=== PATIENT | female | born 1955 | race Caucasian/White ===

== ENCOUNTER → 2018-04-22 16:51 | Outpatient (CLI) | payer OTHER, SELFPAY ==
--- NOTE | 2018-04-22 | ASPS_PTH ---
PATIENT: CATHLEEN TRISTAN LOC: [facility] U#:[id number] AGE/SX: 69/F ROOM: RE04/22/[address]: Dr. Ifeanyi Hoyos MD : 1955 BED: DIS: SPEC #: [id number] RECD: 04/22/18 16:15 STATUS: LARRY MARGRET #: [id number] WILLIAM: 04/22/18 00:[address]: Ifeanyi Hoyos DEPT: CYTOLOGY RECD BY: Srinivasa Raygoza Tissues: Axillary lymph node, NOS Procedures: Pap Stain (control) Special Stain Group II Surgery Specimen Level IV Cytology Other HEADER OPERATION: Ultrasound-guided fine needle aspiration of right axillary lymph node PRE-OP DIAGNOSIS: Right axillary mass, history of right breast cancer TISSUE SUBMITTED: FNA right axillary mass/lymph node DIAGNOSIS CYTOLOGY Right axillary mass/lymph node, ultrasound-guided FNA (smears): Negative for malignant cells. See cytology study and comment. SJ:kiran 11/20/18 COMMENT Correlation with clinical findings and appropriate follow up are necessary. Rebiopsy is suggested if clinically indicated. CYTOLOGY STUDY Slides are reviewed. The specimen is paucicellular and predominantly consists of small lymphocytes. CYTOLOGY GROSS Received are four smears labeled with the patient's name and designated per the requisition as right axillary mass/lymph node. Submitted for staining. 04/25/18 TC:5 CPT: 87355
== END ==
PROVIDERS: Referring Provider Surgery; Visit Provider Surgery
DX: R22.1 Localized swelling, mass and lump, neck (principal); Z85.3 Personal history of malignant neoplasm of breast
CPT/HCPCS: 88161; 88305; 88313